=== PATIENT | female | born 1995 | race American Indian/Alaskan Native ===

== ENCOUNTER 2017-09-07 04:10 | Emergency (ER) | payer SELFPAY ==
[2017-09-07 04:23] VITALS: BP 118/65
[2017-09-07 05:03] LABS: Basophils % (Auto) 0.5 % (0.0-1.8); Eosinophils # (Auto) 0.3 K/mm3 (0.0-0.4); Eosinophils % (Auto) 4.4 % (0.0-4.3); Hematocrit 40.9 % (30.3-42.9); Hemoglobin 13.2 gm/dl (10.1-14.3); Lymphocytes # (Auto) 3.2 K/mm3 (1.2-5.4); Lymphocytes % (Auto) 45.1 % (13.4-35.0); Mean Corpuscular HGB Conc 32 % (30-34); Mean Corpuscular Volume 80 fl (79-97); Monocytes # (Auto) 0.6 K/mm3 (0.0-0.8); Platelet Count 208 K/mm3 (140-440); Red Blood Count 5.11 M/mm3 (3.65-5.03); Red Cell Distribution Width 13.8 % (13.2-15.2)
[2017-09-07 05:07] LABS: Mean Corpuscular Hemoglobin 26 pg (28-32)
[2017-09-07 05:23] LABS: Alanine Aminotransferase 12 units/L (7-56); Albumin 3.9 g/dL (3.9-5); BUN/Creatinine Ratio 23; Blood Urea Nitrogen 14 mg/dL (7-17); Calcium 8.9 mg/dL (8.4-10.2); Hemolysis Index 6
[2017-09-07 06:24] LABS: Bilirubin,Urine NEG (Negative); Blood,Urine NEG (Negative); Color,Urine Yellow (Yellow); Nitrite,Urine NEG (Negative); Protein,Urine <15 mg/dL mg/dL (Negative)
== END 2017-09-07 04:30 | disposition left against medical advice (07) ==
LOC: ED 04:10
DX: R10.9 Unspecified abdominal pain (principal); Z53.21 Procedure and treatment not carried out due to patient leaving prior to being seen by health care provider
CPT/HCPCS: 36415; 80053; 81001; 84702; 85025

== ENCOUNTER 2018-04-23 23:22 | Outpatient (CLI) | payer MEDICAID ==
[2018-04-24 00:30] VITALS: BP 127/84
== END 2018-04-24 02:05 | disposition home or self-care (01) ==
LOC: TRG 23:22
PROVIDERS: ATTEND Obstetrics & Gynecology
DX: O47.1 False labor at or after 37 completed weeks of gestation (principal); Z3A.38 38 weeks gestation of pregnancy
CPT/HCPCS: 59025

== ENCOUNTER 2020-10-17 19:59 | Emergency (ER) | payer MEDICAID ==
[2020-10-17 20:39] VITALS: BP 133/84
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
[2020-10-17 21:11] LABS: Basophils # (Auto) 0.1 K/mm3 (0.0-0.1); Basophils % (Auto) 0.9 % (0.0-1.8); Eosinophils # (Auto) 0.2 K/mm3 (0.0-0.4); Eosinophils % (Auto) 2.2 % (0.0-4.3); Hematocrit 41.1 % (30.3-42.9); Hemoglobin 13.4 gm/dl (10.1-14.3); Lymphocytes # (Auto) 2.8 K/mm3 (1.2-5.4); Lymphocytes % (Auto) 36.7 % (13.4-35.0); Mean Corpuscular HGB Conc 33 % (30-34); Mean Corpuscular Volume 78 fl (79-97); Monocytes # (Auto) 0.5 K/mm3 (0.0-0.8); Monocytes % (Auto) 6.2 % (0.0-7.3); Platelet Count 226 K/mm3 (140-440); Red Blood Count 5.25 M/mm3 (3.65-5.03)
[2020-10-17 21:26] LABS: INR 0.94 (0.87-1.13)
[2020-10-17 21:27] LABS: Partial Thromboplastin Time 27.1 Sec. (24.2-36.6)
[2020-10-17] MEDS ORDERED: ONDANSETRON 4 MG ODT TAB PO ONE (21:30)
[2020-10-17] MEDS ORDERED: predniSONE 20 MG TAB PO ONE (21:30)
[2020-10-17] MEDS ORDERED: KETOROLAC 30 MG/1 ML INJ IM ONE (21:30)
[2020-10-17] MEDS ORDERED: oxyCODONE /ACETAMINOPHEN 5-325MG TAB PO ONE (21:30)
[2020-10-17 21:36] LABS: Alanine Aminotransferase 12 units/L (7-56); BUN/Creatinine Ratio 11; Blood Urea Nitrogen 8 mg/dL (7-17); Calcium 9.3 mg/dL (8.4-10.2); Hemolysis Index 11
[2020-10-17] MEDS ORDERED: predniSONE 20 MG TAB ONE (21:41)
[2020-10-17] MEDS ORDERED: KETOROLAC 30 MG/1 ML INJ ONE (21:42)
[2020-10-17] MEDS ORDERED: oxyCODONE /ACETAMINOPHEN 5-325MG TAB ONE (21:42)
[2020-10-17] MEDS ORDERED: ONDANSETRON 4 MG ODT TAB ONE (21:42)
--- NOTE | 2020-10-17 23:07 | Vascular Lab Report ---
VL venous duplex LE BILAT INDICATION / CLINICAL INFORMATION: BLE edema. COMPARISON: None available. FINDINGS: No evidence of deep vein thrombosis in either leg. Signer Name: Ananda Kapoor MD Signed: 10/17/2020 11:02 PM Workstation Name: [id number]
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
== END 2020-10-18 00:10 | disposition home or self-care (01) ==
LOC: ED 19:59
DX: S86.911A Strain of unspecified muscle(s) and tendon(s) at lower leg level, right leg, initial encounter (principal); G89.4 Chronic pain syndrome; M16.11 Unilateral primary osteoarthritis, right hip; X58.XXXA Exposure to other specified factors, initial encounter; Y93.89 Activity, other specified; Y92.89 Other specified places as the place of occurrence of the external cause; Y99.8 Other external cause status
CPT/HCPCS: 36415; 80053; 82550; 83735; 83880; 84703; 85025; 85610; 85730; 93970; 96372; 99284; J1885; J7512; Q0162